=== PATIENT | female | born 1950 | race American Indian/Alaskan Native ===

== ENCOUNTER 2022-03-08 10:09 | Emergency (ER) | payer MEDICARE, MEDICAID ==
[2022-03-08] MEDS ORDERED: fentaNYL 100 MCG/2 ML INJ IV ONE (10:37)
[2022-03-08] MEDS ORDERED: ONDANSETRON 4 MG/2 ML INJ IV ONE (10:37)
--- NOTE | 2022-03-08 10:42 | Emergency Department Report ---
ED Fall HPI - General Chief Complaint: Fall Stated Complaint: FALL Time Seen by Provider: 03/08/22 10:37 Source: patient, EMS Mode of arrival: Stretcher - History of Present Illness Initial Comments: Patient is 71 years old female brought to the emergency room via EMS from home f or evaluation after a fall. Patient stated that she was laying on her couch and when she rolled over she fell on the ground, hardwood floor. Patient landed on her left side. Patient complaining of left-sided chest pain, left upper abdominal pain, left hip pain. Patient stated that she hit her head also. Patient also complaining of neck pain. MD Complaint: fall -: This morning Fall From: out of bed Fall Witnessed: yes, by family Place Fall Occurred: home Symptoms Prior to Fall: none - Related Data Allergies Allergy/AdvReac Type Severity Reaction Status Date / Time animal dander AdvReac Unknown Verified 03/08/22 10:13 aspirin AdvReac Unknown Verified 03/08/22 10:13 codeine AdvReac Unknown Verified 03/08/22 10:13 erythromycin base AdvReac Unknown Verified 03/08/22 10:13 grass pollen AdvReac Unknown Verified 03/08/22 10:13 ketorolac [From Toradol] AdvReac Unknown Verified 03/08/22 10:13 Latex, Natural Rubber AdvReac Unknown Verified 03/08/22 10:13 ED Review of Systems ROS: Stated complaint: FALL Other details as noted in HPI Comment: All other systems reviewed and negative Constitutional: denies: chills, fever Respiratory: denies: cough, orthopnea, shortness of breath, SOB with exertion, SOB at rest Gastrointestinal: denies: abdominal pain, nausea, vomiting, diarrhea Musculoskeletal: denies: back pain Neurological: denies: headache, weakness, numbness, paresthesias, confusion ED Past Medical Hx - Social History Smoking Status: Never Smoker Substance Use Type: None ED Physical Exam - General Limitations: No Limitations General appearance: alert, in no apparent distress - Head Head exam: Present: atraumatic, normocephalic, normal inspection - Eye Eye exam: Present: normal appearance - ENT ENT exam: Present: normal exam, normal orophraynx - Respiratory Respiratory exam: Present: chest wall tenderness - Cardiovascular Cardiovascular Exam: Present: regular rate, normal rhythm, normal heart sounds - GI/Abdominal GI/Abdominal exam: Present: soft, tenderness, normal bowel sounds. Absent: distended, guarding, rebound, rigid, mass, bruit, pulsatile mass, hernia - Extremities Exam Extremities exam: Present: normal inspection, full ROM, normal capillary refill. Absent: pedal edema, calf tenderness - Back Exam Back exam: Present: normal inspection, full ROM. Absent: CVA tenderness (R), CVA tenderness (L) - Neurological Exam Neurological exam: Present: alert, oriented X3, CN II-XII intact - Psychiatric Psychiatric exam: Present: normal mood, anxious - Skin Skin exam: Present: warm, intact, normal color ED Course Vital Signs 03/08/22 03/08/22 03/08/22 10:10 10:25 10:31 Pulse Rate 78 77 80 Respiratory 15 18 Rate Blood Pressure 106/72 Blood Pressure 113/68 [Right] O2 Sat by Pulse 97 95 95 Oximetry 03/08/22 03/08/22 03/08/22 10:45 11:01 11:15 Pulse Rate 78 80 77 Respiratory 15 23 13 Rate Blood Pressure 106/72 106/72 106/72 Blood Pressure [Right] O2 Sat by Pulse 93 95 96 Oximetry 03/08/22 03/08/22 03/08/22 11:31 11:45 12:01 Pulse Rate 77 84 86 Respiratory 13 14 10 L Rate Blood Pressure 106/72 106/72 106/72 Blood Pressure [Right] O2 Sat by Pulse 97 97 98 Oximetry 03/08/22 03/08/22 03/08/22 12:15 12:31 12:45 Pulse Rate 85 90 81 Respiratory 10 L 12 10 L Rate Blood Pressure 106/72 106/72 106/72 Blood Pressure [Right] O2 Sat by Pulse 98 100 99 Oximetry ED Medical Decision Making - Lab Data Result diagrams: 03/08/22 Unknown 03/08/22 13:00 - Radiology Data Radiology results: report reviewed - Medical Decision Making Patient is 71 years old female brought to the emergency room via EMS from home for evaluation after a fall. Patient stated that she was laying on her couch and when she rolled over she fell on the ground, hardwood floor. Patient landed on her left side. Patient complaining of left-sided chest pain, left upper abdominal pain, left hip pain. Patient stated that she hit her head also. Patient also complaining of neck pain. Labs reviewed and is unremarkable. CT head, CT cervical spine, CT chest and CT abdomen and pelvis is unremarkable for acute finding. Patient received [place] in the ER. Patient advised to follow-up with her primary care physician for further management. Patient also advised to return to the ER if she develop any new symptoms. Critical care attestation.: If time is entered above; I have spent that time in minutes in the direct care of this critically ill patient, excluding procedure time. ED Disposition Clinical Impression: Fall, Contusion Disposition: 01 HOME / SELF CARE / HOMELESS Is pt being admited?: No Condition: Stable Instructions: Fall Prevention in the Home, Adult, Contusion Referrals: PRIMARY CARE, [Referring] - 3-5 Days
[2022-03-08 11:07] LABS: Basophils % (Auto) 0.3 % (0.0-1.8); Eosinophils % (Auto) 0.7 % (0.0-4.3); Hematocrit 31.7 % (30.3-42.9); Lymphocytes # (Auto) 1.4 K/mm3 (1.2-5.4); Lymphocytes % (Auto) 22.9 % (13.4-35.0); Mean Corpuscular HGB Conc 32 % (30-34); Mean Corpuscular Volume 82 fl (79-97); Monocytes # (Auto) 0.4 K/mm3 (0.0-0.8); Monocytes % (Auto) 6.5 % (0.0-7.3); Platelet Count 265 K/mm3 (140-440); Red Blood Count 3.85 M/mm3 (3.65-5.03); Red Cell Distribution Width 18.1 % (13.2-15.2)
[2022-03-08 11:19] LABS: INR 0.82 (0.87-1.13)
[2022-03-08 11:20] LABS: Partial Thromboplastin Time 27.1 Sec. (24.2-36.6)
[2022-03-08 11:35] LABS: BUN/Creatinine Ratio TNR; Blood Urea Nitrogen TNR mg/dL (7-17); Calcium TNR mg/dL (8.4-10.2); Hemolysis Index TNR
[2022-03-08 13:47] LABS: Calcium 9.4 mg/dL (8.4-10.2)
--- NOTE | 2022-03-08 14:14 | Cat Scan Report ---
CT BRAIN: 03/08/2022 INDICATION / CLINICAL INFORMATION: Fall. COMPARISON: None available. FINDINGS: BRAIN/INTRACRANIAL STRUCTURES: Unenhanced CT images of the brain demonstrate no evidence of acute abn ormality. Ventricles and sulci are prominent in size, consistent with prominent age-related atrophic change. Chronic white matter hypoattenuation is present throughout the cerebral hemispheric white matter. There is no evidence of acute ischemic injury, hemorrhage, or mass. There are no abnormal extra-axial fluid collections. EXTRACRANIAL STRUCTURES: Unremarkable. IMPRESSION: No acute abnormality. All CT scans at this location are performed using dose reduction to ALARA by means of automated expos ure control. Signer Name: Dimitris Holm MD Signed: 03/08/2022 2:09 PM Workstation Name: [id number]
--- NOTE | 2022-03-08 14:18 | Cat Scan Report ---
CT CHEST, ABDOMEN, AND PELVIS WITHOUT CONTRAST INDICATION / CLINICAL INFORMATION: Fall. Chest and abdominal pain. TECHNIQUE: Axial CT images were obtained through the chest, abdomen, and pelvis without contrast. All CT scans at this location are performed using CT dose reduction for ALARA by means of automated expo sure control. COMPARISON: None available. FINDINGS: HEART: No significant abnormality. CORONARY ARTERY CALCIFICATION: Present -- Moderate. THORACIC AORTA: Mild atherosclerotic calcification without acute abnormality. MEDIASTINUM / FIFI: No significant abnormality. PLEURA: No pleural effusion. No pneumothorax. LUNGS: No acute air space or interstitial disease. Mild bibasilar atelectasis. ADDITIONAL CHEST FINDINGS: None. LIVER: No significant abnormality. GALLBLADDER: Cholecystectomy. BILE DUCTS: No significant abnormality. PANCREAS: No significant abnormality. SPLEEN: No significant abnormality. ADRENALS: No significant abnormality. RIGHT KIDNEY / URETER: Small simple cyst. No significant abnormality. LEFT KIDNEY / URETER: Small simple cysts. No significant abnormality. STOMACH and SMALL BOWEL: No significant abnormality. COLON: No significant abnormality. APPENDIX: Appendectomy. PERITONEUM: No free fluid. No free air. No fluid collection. LYMPH NODES: No significant adenopathy. AORTA / ARTERIES: No significant abnormality. IVC / VEINS: No significant abnormality. URINARY BLADDER: No significant abnormality. REPRODUCTIVE ORGANS: Uterus is absent. No significant adnexal abnormality. ADDITIONAL FINDINGS: None. SKELETAL SYSTEM: Postoperative and degenerative findings of the lumbar spine. No acute osseous abnorm ality. IMPRESSION: 1. No acute findings in the chest, abdomen, or pelvis. Signer Name: Alis Rodrigez MD Signed: 03/08/2022 2:13 PM Workstation Name: [id number]
--- NOTE | 2022-03-08 14:19 | Cat Scan Report ---
CT cervical spine wo con INDICATION / CLINICAL INFORMATION: 71 years Female; Fall. TECHNIQUE: Axial CT images of the cervical spine were obtained. Sagittal and coronal reformatted images were pr oduced. All CT scans at this location are performed using CT dose reduction for ALARA by means of aut omated exposure control. COMPARISON: None available. FINDINGS: POST-SURGICAL CHANGES: Posterior fusion hardware seen extending from the C2 level through the T1 leve l - bilateral posterior element screws are suggested at every level except C7 where there is a unilat eral screw on the left. Interbody fusion material seen at C3-4, C4-5, C5-6, and C6-7. Minimal loosening of the screws at the C2 level cannot entirely be excluded. Flexion-extension views may be of benefit to evaluate for any motion at the C2-3 level. No definitive signs of hardware failure appreciated. ALIGNMENT: There may be slight anterolisthesis of C7 with respect to T1. VERTEBRAE: No signs of fracture. Vertebral bodies are grossly normal in height throughout. Is difficult to evaluate canal patency because of hardware artifact. INTRAVERTEBRAL DISCS: Disc spaces are fairly well-maintained throughout without significant canal alba nosis. PARASPINAL SOFT TISSUES: No significant abnormality. ADDITIONAL FINDINGS: There is significant opacification of the right sphenoid sinus. IMPRESSION: 1. No definitive signs of acute bony trauma or hardware failure. Signer Name: Jefferson Grigsby MD, III Signed: 03/08/2022 2:14 PM Workstation Name: [id number]
[2022-03-08] MEDS ORDERED: HYDROcodone/ACETAMINOPHEN 5-325 MG TAB PO ONE (14:28)
[2022-03-08 16:14] VITALS: BP 132/81
== END 2022-03-08 16:16 | disposition home or self-care (01) ==
LOC: ED 10:09
DX: T14.8XXA Other injury of unspecified body region, initial encounter (principal); M25.552 Pain in left hip; R07.9 Chest pain, unspecified; R10.10 Upper abdominal pain, unspecified; R51.9 Headache, unspecified; Z88.1 Allergy status to other antibiotic agents; Z88.5 Allergy status to narcotic agent; Z88.6 Allergy status to analgesic agent; Z91.040 Latex allergy status; Z91.048 Other nonmedicinal substance allergy status; W17.89XA Other fall from one level to another, initial encounter; Y93.89 Activity, other specified; Y92.89 Other specified places as the place of occurrence of the external cause; Y99.8 Other external cause status
CPT/HCPCS: 36415; 70450; 71250; 72125; 74176; 80048; 85025; 85610; 85730; 99284; J2405; J3010

== ENCOUNTER 2022-05-24 12:36 | Emergency (ER) | payer MEDICARE, MEDICAID ==
--- NOTE | 2022-05-24 15:31 | Cat Scan Report ---
CT lumbar spine wo con INDICATION: PAIN SP FALL. TECHNIQUE: Axial CT images of the lumbar spine were obtained. Sagittal and coronal reformatted images were produ joshua. All CT scans at this location are performed using CT dose reduction for ALARA by means of automa caleb exposure control. COMPARISON: None available. FINDINGS: ALIGNMENT: Minimal anterolisthesis of L4-L5. VERTEBRAE: No fracture. Vertebral body heights are preserved. SPONDYLOSIS: Postoperative changes from L4 to S1 posterior spinal fusion and interbody fusion at L5-S 1. Hardware is intact. No abnormal lucency surrounds hardware. L5-S1 laminectomies with right facetec ravindra. Thecal sac and right neural foramen are decompressed. No significant osseous spinal canal or fo raminal stenosis. There is mature osseous fusion along the posterior construct L4-L5 but not at L5-S1 . No significant superior junctional L3-L4 spondylosis. SOFT TISSUES: No significant soft tissue abnormality. ADDITIONAL FINDINGS: No significant additional findings. IMPRESSION: 1. No acute fracture. Signer Name: Antoni Barone MD Signed: 05/24/2022 3:27 PM Workstation Name: [id number]
--- NOTE | 2022-05-24 16:31 | Emergency Department Report ---
ED Fall HPI - General Chief Complaint: Back Pain/Injury Stated Complaint: BACK PAIN X1 WEEK Time Seen by Provider: 05/24/22 16:30 Source: patient, EMS Mode of arrival: Wheelchair - History of Present Illness Initial Comments: 71 YO COMES TO ER SP FALL 7 DAYS AGO. SHE SLIPPED ON WET WATER AND SLID TO GROUND. PT AMBULATORY. NO FEVER/CHILLS. NO PARALYSIS. NO INCONTINENCE. NO SPINE TENDERNESS MECHANICAL FALL WITH NO LOC MD Complaint: fall -: Sudden, days(s) Fall From: standing Fall Witnessed: yes, by family Place Fall Occurred: home Loss of Consciousness: none Prolonged Down Time?: no Symptoms Prior to Fall: none Context: tripped/slipped Associated Symptoms: denies - Related Data Previous Rx's Medication Instructions Recorded Last Taken Type oxyCODONE /ACETAMINOPHEN [Percocet 1 tab PO Q6HR PRN #10 tablet 03/08/22 Unknown Rx 5/325] Allergies Allergy/AdvReac Type Severity Reaction Status Date / Time animal dander AdvReac Unknown Verified 05/24/22 12:45 aspirin AdvReac Unknown Verified 05/24/22 12:45 codeine AdvReac Unknown Verified 05/24/22 12:45 erythromycin base AdvReac Unknown Verified 05/24/22 12:45 grass pollen AdvReac Unknown Verified 05/24/22 12:45 ketorolac [From Toradol] AdvReac Unknown Verified 05/24/22 12:45 Latex, Natural Rubber AdvReac Unknown Verified 05/24/22 12:45 ED Review of Systems ROS: Stated complaint: BACK PAIN X1 WEEK Other details as noted in HPI Comment: All other systems reviewed and negative ED Past Medical Hx - Past Medical History Previous Medical History?: Yes Hx Hypertension: Yes Hx GERD: Yes Hx Headaches / Migraines: Yes Hx COPD: Yes Additional medical history: bronchitis- CHRONIC PAIN- IN PAIN MANAGEMENT - Surgical History Past Surgical History?: Yes - Family History Family history: no significant - Social History Smoking Status: Never Smoker Substance Use Type: None - Medications Home Medications: Home Medications Medication Instructions Recorded Confirmed Last Taken Type oxyCODONE /ACETAMINOPHEN [Percocet 1 tab PO Q6HR PRN #10 tablet 03/08/22 Unknown Rx 5/325] ED Physical Exam - General Limitations: No Limitations General appearance: alert - Head Head exam: Present: normocephalic - Eye Eye exam: Present: normal appearance, PERRL - ENT ENT exam: Present: mucous membranes moist - Neck Neck exam: Present: normal inspection - Respiratory Respiratory exam: Present: normal lung sounds bilaterally. Absent: respiratory distress - Cardiovascular Cardiovascular Exam: Present: regular rate, normal rhythm. Absent: systolic murmur, diastolic murmur, rubs, gallop - GI/Abdominal GI/Abdominal exam: Present: soft, normal bowel sounds - Extremities Exam Extremities exam: Present: normal inspection, full ROM - Back Exam Back exam: Present: normal inspection, paraspinal tenderness. Absent: full ROM, tenderness, CVA tenderness (R), CVA tenderness (L), muscle spasm, vertebral tenderness, rash noted - Neurological Exam Neurological exam: Present: alert, oriented X3 - Psychiatric Psychiatric exam: Present: anxious - Skin Skin exam: Present: warm, dry, intact, normal color. Absent: rash ED Course Vital Signs 05/24/22 12:43 Temperature 97.4 F L Pulse Rate 68 Respiratory 16 Rate Blood Pressure 122/73 [Left] O2 Sat by Pulse 97 Oximetry - Reevaluation(s) Reevaluation #1: 05/24/22 16:41 HOME RX NORVASC PERCOCET LYRICA XARALTO ED Medical Decision Making - Radiology Data Radiology results: report reviewed, image reviewed NAP - Medical Decision Making Vital Signs 05/24/22 12:43 Temperature 97.4 F L Pulse Rate 68 Respiratory 16 Rate Blood Pressure 122/73 [Left] O2 Sat by Pulse 97 Oximetry MEDICATED WITH IM TORADOL, NORCO AND FLEXERIL PT IS CHRONIC PAIN PT ON PERCOCET AT HOME. SEEMS TO BE A COMPONENT OF DRUG SEEKING BEHAVIOR PT BEING DC HOME WITH DC PLAN OF CARE- INCLUDING DIET, MEDS, ACTIVITY AND FOLLOW UP. SHE VERBALIZES UNDERSTANDING OF THE PLAN CARE. SHE IS TO BE DISCHARGED HOME WITH A RIDE. - Differential Diagnosis RO FX Critical care attestation.: If time is entered above; I have spent that time in minutes in the direct care of this critically ill patient, excluding procedure time. ED Disposition Clinical Impression: Fall Qualifiers: Encounter type: initial encounter Qualified Code(s): W19.XXXA - Unspecified f all, initial encounter Back pain Qualifiers: Back pain location: low back pain Chronic pain Qualifiers: Chronic pain type: chronic pain syndrome Qualified Code(s): G89.4 - Chronic pain syndrome Disposition: 01 HOME / SELF CARE / HOMELESS Is pt being admited?: No Does the pt Need Aspirin: No Condition: Stable Instructions: Chronic Back Pain Additional Instructions: CONTINUE HOME MEDS INCLUDING LYRICA AND PERCOCET Referrals: MIGUEL TIMMONS MD [Staff Physician] - 3-5 Days SYDNEY ROWLEY MD [Staff Physician] - 3-5 Days Time of Disposition: 16:35
[2022-05-24] MEDS ORDERED: HYDROcodone/ACETAMINOPHEN 5-325 MG TAB PO ONE (16:35)
[2022-05-24] MEDS ORDERED: KETOROLAC 60 MG/2 ML INJ IM ONE (16:35)
[2022-05-24] MEDS ORDERED: CYCLOBENZAPRINE 10 MG TAB PO ONE (16:35)
[2022-05-24] MEDS ORDERED: diphenhydrAMINE 25 MG CAP PO ONE (18:01)
[2022-05-24] MEDS ORDERED: dexAMETHasone 4 MG/ML VIAL IM ONE (18:06)
[2022-05-24 18:50] VITALS: BP 134/78
== END 2022-05-24 18:49 | disposition home or self-care (01) ==
LOC: ED 12:36
DX: M54.50 Low back pain, unspecified (principal); G89.29 Other chronic pain; I10 Essential (primary) hypertension; K21.9 Gastro-esophageal reflux disease without esophagitis; G43.909 Migraine, unspecified, not intractable, without status migrainosus; J44.9 Chronic obstructive pulmonary disease, unspecified; Z88.5 Allergy status to narcotic agent; Z91.09 Other allergy status, other than to drugs and biological substances; Z88.6 Allergy status to analgesic agent; Z88.1 Allergy status to other antibiotic agents; Z79.899 Other long term (current) drug therapy; W18.39XA Other fall on same level, initial encounter; Y93.89 Activity, other specified; Y92.89 Other specified places as the place of occurrence of the external cause; Y99.8 Other external cause status
CPT/HCPCS: 72131; 96372; 99284; J1100; J1885

== ENCOUNTER 2022-06-28 14:11 | Emergency (ER) | payer MEDICARE, MEDICAID ==
[2022-06-28] MEDS ORDERED: METOCLOPRAMIDE 10 MG/2 ML INJ IM ONE (15:24)
[2022-06-28] MEDS ORDERED: BUTALB/ACETAMINOPHEN/CAFFEINE TAB PO ONE (15:24)
[2022-06-28] MEDS ORDERED: fentaNYL 100 MCG/2 ML INJ IM ONE (15:24)
--- NOTE | 2022-06-28 15:28 | Emergency Department Report ---
HPI - General Chief Complaint: Headache Time Seen by Provider: 06/28/22 15:16 - HPI HPI: Room 5 The patient is a 71-year-old female present with chief complaint of migraine headache. Patient states she has a history of migraines and is followed by a n eurologist Dr. Dickson at [place]. Patient states for the past 3 days she has had a constant bitemporal and occipital headache that feels like her migraines. Patient admits to nausea vomiting. Patient denies any preceding trauma. Patient denies history of fever. Patient currently gives her pain a score of 10/10 ED Past Medical Hx - Past Medical History Hx Hypertension: Yes Hx CVA: Yes Hx GERD: Yes Hx Headaches / Migraines: Yes Hx COPD: Yes Additional medical history: bronchitis- CHRONIC PAIN- IN PAIN MANAGEMENT - Surgical History Hx Cholecystectomy: Yes Additional Surgical History: Back surgery x2, neck surgery, right shoulder surgery, hysterectomy - Family History Family history: no significant - Social History Smoking Status: Current Every Day Smoker (1/2 pack/day) Substance Use Type: None (Denies illicit drug use) - Medications Home Medications: Home Medications Medication Instructions Recorded Confirmed Last Taken Type oxyCODONE /ACETAMINOPHEN [Percocet 1 tab PO Q6HR PRN #10 tablet 03/08/22 Unknown Rx 5/325] Butalb/Acetamin/Caff 50-325-40 2 tab PO Q8HR PRN #20 tablet 06/28/22 Unknown Rx [Fioricet 50-325-40] ED Review of Systems ROS: Stated complaint: MIGRAINE Other details as noted in HPI Constitutional: denies: fever Eyes: denies: eye pain ENT: denies: throat pain Respiratory: no symptoms reported Cardiovascular: denies: chest pain Endocrine: no symptoms reported Gastrointestinal: nausea, vomiting Genitourinary: denies: dysuria Musculoskeletal: denies: back pain Neurological: headache Physical Exam - Physical Exam Vital Signs: Vital Signs 06/28/22 14:24 Temperature 97.5 F L Pulse Rate 80 Respiratory 18 Rate Blood Pressure 137/85 [Left] O2 Sat by Pulse 97 Oximetry Physical Exam: GENERAL: The patient is well-developed well-nourished female lying on stretcher not appearing to be in acute distress. [] HEENT: Normocephalic. Atraumatic. Extraocular motions are intact. Patient has moist mucous membranes. NECK: Supple. No meningitic signs are noted. Trachea midline CHEST/LUNGS: Clear to auscultation. There is no respiratory distress noted. HEART/CARDIOVASCULAR: Regular. There is no tachycardia. There is no gallop rub or murmur. ABDOMEN: Abdomen is soft, nontender. Patient has normal bowel sounds. There is no abdominal distention. SKIN: There is no rash. There is no edema. There is no diaphoresis. NEURO: The patient is awake, alert, and oriented. The patient is cooperative. The patient has no focal neurologic deficits. The patient has normal speech. Cranial nerves II through XII grossly intact. Moves all extremities well. GCS 15 MUSCULOSKELETAL: There is no evidence of acute injury. ED Course Vital Signs 06/28/22 14:24 Temperature 97.5 F L Pulse Rate 80 Respiratory 18 Rate Blood Pressure 137/85 [Left] O2 Sat by Pulse 97 Oximetry - Reevaluation(s) Reevaluation #1: 06/28/22 19:14 Patient states her headache has improved to a 05/01 ED Medical Decision Making - Radiology Data Radiology results: report reviewed (CT head), image reviewed (CT head) [facility] [address] [place] [address] Cat Scan Report Signed Patient: DAMEON GEORGES MR#: [id number] : 1950 Acct:[id number] Age/Sex: 71 / F ADM Date: 06/28/22 Loc: ED Attending Dr: Ordering Physician: RUBENS WONG MD Date of Service: 06/28/22 Procedure(s): CT head/brain wo con Accession Number(s): [id number] cc: RUBENS WONG MD CT HEAD WITHOUT CONTRAST INDICATION / CLINICAL INFORMATION: Headache nausea vomiting. TECHNIQUE: All CT scans at this location are performed using CT dose reduction for ALARA by means of automated exposure control. COMPARISON: Head CT 03/08/2022 FINDINGS: HEMORRHAGE: No evidence of intracranial hemorrhage or extra-axial fluid collection. EXTRA-AXIAL SPACES: Cortical sulci and sylvian fissures are normal limits for the patient's age of 71 years. Basilar cisterns have an unremarkable appearance. VENTRICULAR SYSTEM: The third and lateral ventricles are normal in size given the patient's age. CEREBRAL PARENCHYMA: Subtle periventricular, subcortical and deep white matter lucency is observed. This is probably secondary to microvascular ischemic change. There is no indication of recent infarction. No areas of encephalomalacia are identified. MIDLINE SHIFT OR HERNIATION: There is no mass effect. CEREBELLUM / BRAINSTEM: Brainstem has an unremarkable appearance. Age related cerebellar atrophy is noted. MIDLINE STRUCTURES:Pituitary gland has an unremarkable appearance. No abnormalities are seen in the pineal region. INTRACRANIAL VESSELS:Calcified atherosclerotic plaque is present along the course of the cavernous segments of both internal carotid arteries. CRANIOCERVICAL JUNCTION:No signifi cant abnormality. ORBITS: Status post bilateral cataract surgery. Bilateral exophthalmos is noted. Correlation with thyroid function testing is suggested. No additional orbital abnormalities are i dentified. SOFT TISSUES of HEAD: No significant abnormality. CALVARIUM: Evaluation of bone windows reveals no abnormalities. PARANASAL SINUSES / MASTOID AIR CELLS: Mild mucosal thickening is present in the right sphenoid sinus. There is bony thickening of the wall of the right sphenoid sinus consistent with chronic inflammatory change. ADDITIONAL FINDINGS: None. IMPRESSION: 1. Age-related microvascular ischemic change. 2. No acute intracranial abnormality. 3. Head CT without contrast is within normal limits for the patient's age of 71 years and unchanged in comparison to prior study 03/08/2022. Signer Name: Manuel Freeman MD Signed: 06/28/2022 4:01 PM Workstation Name: [id number] Transcribed By: Dictated By: Manuel Freeman MD Electronically Authenticated By: Manuel Freeman MD Signed Date/Time: 06/28/22 1601 DD/ 1557 TD/TT: - Differential Diagnosis Migraine headache, intracranial mass, intracranial hemorrhage Critical care attestation.: If time is entered above; I have spent that time in minutes in the direct care of this critically ill patient, excluding procedure time. ED Disposition Clinical Impression: Headache Disposition: HOME / SELF CARE / HOMELESS Is pt being admited?: No Does the pt Need Aspirin: No Condition: Stable Additional Instructions: Return to the emergency department should you develop worsening symptoms, inability to tolerate food or liquids, high fever or any other concerns Prescriptions: Butalb/Acetamin/Caff 50-325-40 [Fioricet 50-325-40] 2 tab PO Q8HR PRN #20 tablet PRN Reason: Headache Referrals: Dr. Hernandez, your neurologist [Other] - 3-5 Days Time of Disposition: 19:15
--- NOTE | 2022-06-28 16:06 | Cat Scan Report ---
CT HEAD WITHOUT CONTRAST INDICATION / CLINICAL INFORMATION: Headache nausea vomiting. TECHNIQUE: All CT scans at this location are performed using CT dose reduction for ALARA by means of automated e xposure control. COMPARISON: Head CT 03/08/2022 FINDINGS: HEMORRHAGE: No evidence of intracranial hemorrhage or extra-axial fluid collection. EXTRA-AXIAL SPACES: Cortical sulci and sylvian fissures are normal limits for the patient's age of 71 years. Basilar cisterns have an unremarkable appearance. VENTRICULAR SYSTEM: The third and lateral ventricles are normal in size given the patient's age. CEREBRAL PARENCHYMA: Subtle periventricular, subcortical and deep white matter lucency is observed. T his is probably secondary to microvascular ischemic change. There is no indication of recent infarcti on. No areas of encephalomalacia are identified. MIDLINE SHIFT OR HERNIATION: There is no mass effect. CEREBELLUM / BRAINSTEM: Brainstem has an unremarkable appearance. Age related cerebellar atrophy is n oted. MIDLINE STRUCTURES:Pituitary gland has an unremarkable appearance. No abnormalities are seen in the p ineal region. INTRACRANIAL VESSELS:Calcified atherosclerotic plaque is present along the course of the cavernous se gments of both internal carotid arteries. CRANIOCERVICAL JUNCTION:No significant abnormality. ORBITS: Status post bilateral cataract surgery. Bilateral exophthalmos is noted. Correlation with thy roid function testing is suggested. No additional orbital abnormalities are identified. SOFT TISSUES of HEAD: No significant abnormality. CALVARIUM: Evaluation of bone windows reveals no abnormalities. PARANASAL SINUSES / MASTOID AIR CELLS: Mild mucosal thickening is present in the right sphenoid sinus . There is bony thickening of the wall of the right sphenoid sinus consistent with chronic inflammato ry change. ADDITIONAL FINDINGS: None. IMPRESSION: 1. Age-related microvascular ischemic change. 2. No acute intracranial abnormality. 3. Head CT without contrast is within normal limits for the patient's age of 71 years and unchanged i n comparison to prior study 03/08/2022. Signer Name: Manuel Freeman MD Signed: 06/28/2022 4:01 PM Workstation Name: [id number]
[2022-06-28] MEDS ORDERED: fentaNYL 100 MCG/2 ML INJ IV ONE (19:14)
[2022-06-28] MEDS ORDERED: diphenhydrAMINE 50 MG/ML VIAL IV ONE (19:14)
[2022-06-28 20:02] VITALS: BP 140/68
== END 2022-06-28 20:02 | disposition home or self-care (01) ==
LOC: ED 14:11
DX: G43.909 Migraine, unspecified, not intractable, without status migrainosus (principal); I10 Essential (primary) hypertension; K21.9 Gastro-esophageal reflux disease without esophagitis; J44.9 Chronic obstructive pulmonary disease, unspecified; G89.29 Other chronic pain; F17.210 Nicotine dependence, cigarettes, uncomplicated; Z90.49 Acquired absence of other specified parts of digestive tract; Z79.899 Other long term (current) drug therapy
CPT/HCPCS: 70450; 96372; 96374; 96375; 99284; J1200; J2765; J3010

== ENCOUNTER 2022-06-29 18:53 | Emergency (ER) | payer MEDICARE ==
--- NOTE | 2022-06-29 22:26 | Emergency Department Report ---
ED Headache HPI - General Chief Complaint: Headache Stated Complaint: HEADACHE Time Seen by Provider: 06/29/22 21:54 - History of Present Illness Initial Comments: 71 yo F with history of HTn and CVA and migraine BURGOS currently been seen by neurology and taken scheduled Botox but missed last appointment last Monday because she did not have transportation. She reports pressure headache on the right side of her head. No fever or chills reported. She says she has tried all that she can at home with no appreciable relief. No other modify or associated factors reported. Allergies/Adverse Reactions: Allergies acetaminophen [From Vicodin] Allergy (Verified 06/28/22 16:52) Unknown hydrocodone [From Vicodin] Allergy (Verified 06/28/22 16:52) Unknown pentazocine [From Talwin] Allergy (Verified 06/28/22 16:52) Unknown streptomycin Allergy (Verified 06/28/22 16:52) Unknown tramadol Allergy (Verified 06/28/22 16:52) Unknown animal dander Adverse Reaction (Verified 05/24/22 12:45) Unknown aspirin Adverse Reaction (Verified 05/24/22 12:45) Unknown codeine Adverse Reaction (Verified 05/24/22 12:45) Unknown erythromycin base Adverse Reaction (Verified 05/24/22 12:45) Unknown grass pollen Adverse Reaction (Verified 05/24/22 12:45) Unknown ketorolac [From Toradol] Adverse Reaction (Verified 05/24/22 12:45) Unknown Latex, Natural Rubber Adverse Reaction (Verified 05/24/22 12:45) Unknown lorazepam [From Ativan] Adverse Reaction (Verified 06/28/22 16:52) Unknown metoclopramide [From Reglan] Adverse Reaction (Verified 06/28/22 16:52) Unknown prochlorperazine [From Compazine] Adverse Reaction (Verified 06/28/22 16:52) Unknown Home Medications: Ambulatory Orders oxyCODONE /ACETAMINOPHEN [Percocet 5/325] 1 tab PO Q6HR PRN #10 tablet 03/08/22 Butalb/Acetamin/Caff 50-325-40 [Fioricet 50-325-40] 2 tab PO Q8HR PRN #20 tablet 06/28/22 ED Review of Systems ROS: Stated complaint: HEADACHE Other details as noted in HPI Comment: All other systems reviewed and negative Neurological: headache ED Past Medical Hx - Past Medical History Hx Hypertension: Yes Hx CVA: Yes Hx GERD: Yes Hx Headaches / Migraines: Yes Hx COPD: Yes Additional medical history: bronchitis- CHRONIC PAIN- IN PAIN MANAGEMENT - Surgical History Hx Cholecystectomy: Yes Additional Surgical History: Back surgery x2, neck surgery, right shoulder surgery, hysterectomy - Social History Smoking Status: Current Every Day Smoker (1/2 pack/day) Substance Use Type: None (Denies illicit drug use) - Medications Home Medications: Home Medications Medication Instructions Recorded Confirmed Last Taken Type oxyCODONE /ACETAMINOPHEN [Percocet 1 tab PO Q6HR PRN #10 tablet 03/08/22 Unknown Rx 5/325] Butalb/Acetamin/Caff 50-325-40 2 tab PO Q8HR PRN #20 tablet 06/28/22 Unknown Rx [Fioricet 50-325-40] ED Physical Exam - General Limitations: No Limitations General appearance: alert, in no apparent distress - Head Head exam: Present: atraumatic, normocephalic, normal inspection - Eye Eye exam: Present: normal appearance Pupils: Present: normal accommodation - ENT ENT exam: Present: normal exam, normal orophraynx, mucous membranes moist - Neck Neck exam: Present: normal inspection, full ROM. Absent: tenderness - Respiratory Respiratory exam: Present: normal lung sounds bilaterally. Absent: respiratory distress, accessory muscle use - Cardiovascular Cardiovascular Exam: Present: regular rate, normal rhythm, normal heart sounds - GI/Abdominal GI/Abdominal exam: Present: soft, normal bowel sounds. Absent: distended, tenderness - Extremities Exam Extremities exam: Present: normal inspection, normal capillary refill. Absent: pedal edema - Back Exam Back exam: Absent: tenderness - Neurological Exam Neurological exam: Present: alert, oriented X3 - Psychiatric Psychiatric exam: Present: normal affect, normal mood - Skin Skin exam: Present: warm, normal color ED Course Vital Signs 06/29/22 20:51 Temperature 98.2 F Pulse Rate 78 Respiratory 16 Rate Blood Pressure 142/92 [Right] O2 Sat by Pulse 98 Oximetry - Reevaluation(s) Reevaluation #1: 06/30/22 02:16 ICU called to help put in peripheral iv 18 gauge but patient decided to pull it out and says she is ready to go home-- pt reassure to return it symptoms worsen ED Medical Decision Making - Medical Decision Making here with migraine BURGOS an episode after missing her botox last Monday-- will go ahead and treat and monitor progress Critical care attestation.: If time is entered above; I have spent that time in minutes in the direct care of this critically ill patient, excluding procedure time. ED Disposition Clinical Impression: Migraine headache Qualifiers: Migraine type: unspecified Status migrainosus presence: without status migrainosus Intractability: not intractable Qualified Code(s): G43.909 - Migraine, unspecified, not intractable, without status migrainosus Disposition: HOME / SELF CARE / HOMELESS Is pt being admited?: No Does the pt Need Aspirin: No Condition: Stable Instructions: Migraine Headache, [id number] Additional Instructions: Continue your migraine headache as prescribed by your neurology Please call and follow-up with your neurology in the next 2 to 3 days for progress/reevaluation and treatment Please do not hesitate to call or return to emergency if your symptoms worsen Referrals: PRIMARY CAREMD [Primary Care Provider] - 3-5 Days Time of Disposition: 02:17
[2022-06-29] MEDS ORDERED: SUMAtriptan SUCCINATE 6 MG/0.5 ML INJ SUB-Q ONE (22:28)
[2022-06-29] MEDS ORDERED: SODIUM CHLORIDE 0.9% 1000 ML 1,000 ML IV ONE (22:30)
[2022-06-30] MEDS ORDERED: SODIUM CHLORIDE 0.9% 1000 ML 1,000 ML ONE (01:56)
[2022-06-30 02:41] VITALS: BP 137/66
== END 2022-06-30 02:42 | disposition home or self-care (01) ==
LOC: ED 18:53
DX: G43.909 Migraine, unspecified, not intractable, without status migrainosus (principal); I10 Essential (primary) hypertension; F17.200 Nicotine dependence, unspecified, uncomplicated; Z90.49 Acquired absence of other specified parts of digestive tract
CPT/HCPCS: 96372; 99283; J7030; J3490; J3030

== ENCOUNTER 2022-07-04 16:53 | Emergency (ER) | payer MEDICARE ==
[2022-07-05] MEDS ORDERED: diphenhydrAMINE 25 MG CAP PO ONE (00:05)
[2022-07-05] MEDS ORDERED: BUPIVACAINE/PF (0.5%) 5 MG/1 ML 30 ML VIAL INFILTRATI ONE (00:05)
[2022-07-05] MEDS ORDERED: HALOPERIDOL LACTATE 5 MG/1 ML INJ IM ONE (00:06)
--- NOTE | 2022-07-05 00:13 | Emergency Department Report ---
ED General Adult HPI - General Chief complaint: Headache Stated complaint: MIGRAINE X 5 DAYS PUI?: No Time Seen by Provider: 07/04/22 23:23 Source: patient, RN notes reviewed, old records reviewed Mode of arrival: Stretcher Limitations: No Limitations - History of Present Illness Initial comments: The patient was evaluated in the emergency department for symptoms described in the history of present illness. He/she was evaluated in the context of the global COVID-19 pandemic, which necessitated consideration that the patient might be at risk for infection with the virus that causes COVID-19. Institutional protocols and algorithms that pertain to the evaluation of patients at risk for COVID-19 are in a state of rapid change based on information released by regulatory bodies including the CDC and federal and state organizations. These policies and algorithms were followed during the patient's care in the emergency department. Please note that these policies, procedures and recommendations changed on a rapid basis. The patient is a 71-year-old female with reported history of migraine, chronic pain syndrome, who reports that she recently relocated from [place]. She presents to the department today with a complaint of the typical migraine headache that she has been having since the age of 4. The migraine headache is frontal, bitemporal, and occipital. The headache has been intermittent for the past few days. She had a CT scan of her brain a few days ago at this hospital which was negative for acute findings. No fever. No neck pain or neck stiffness. To me, endorses mild nausea but no vomiting. Endorses mild photophobia. Endorses mild abdominal cramping, with possible diarrhea. No complaint of extremity weakness, numbness or ataxia Reports this is very similar to prior episodes of headaches, and reports that symptoms typically improved with Botox. She reports that she is scheduled to f ollow-up with her outpatient provider this month, on the , for Botox intervention. Makes no complaint of loss of vision, or jaw claudication. The headache is not described as sudden, thunderclap in nature, maximal intensity, or the worst headache of her life. -: days(s) Location: head Consistency: constant Improves with: other (Botox) Worsens with: other (Light. Palpation) - Related Data Previous Rx's Medication Instructions Recorded Last Taken Type oxyCODONE /ACETAMINOPHEN [Percocet 1 tab PO Q6HR PRN #10 tablet 03/08/22 Unknown Rx 5/325] Butalb/Acetamin/Caff 50-325-40 2 tab PO Q8HR PRN #20 tablet 06/28/22 Unknown Rx [Fioricet 50-325-40] Allergies Allergy/AdvReac Type Severity Reaction Status Date / Time acetaminophen [From Vicodin] Allergy Unknown Verified 06/28/22 16:52 hydrocodone [From Vicodin] Allergy Unknown Verified 06/28/22 16:52 pentazocine [From Talwin] Allergy Unknown Verified 06/28/22 16:52 streptomycin Allergy Unknown Verified 06/28/22 16:52 tramadol Allergy Unknown Verified 06/28/22 16:52 animal dander AdvReac Unknown Verified 05/24/22 12:45 aspirin AdvReac Unknown Verified 05/24/22 12:45 codeine AdvReac Unknown Verified 05/24/22 12:45 erythromycin base AdvReac Unknown Verified 05/24/22 12:45 grass pollen AdvReac Unknown Verified 05/24/22 12:45 ketorolac [From Toradol] AdvReac Unknown Verified 05/24/22 12:45 Latex, Natural Rubber AdvReac Unknown Verified 05/24/22 12:45 lorazepam [From Ativan] AdvReac Unknown Verified 06/28/22 16:52 metoclopramide [From Reglan] AdvReac Unknown Verified 06/28/22 16:52 prochlorperazine AdvReac Unknown Verified 06/28/22 16:52 [From Compazine] ED Review of Systems ROS: Stated complaint: MIGRAINE X 5 DAYS Other details as noted in HPI Constitutional: denies: fever Eyes: denies: eye pain, vision change Respiratory: denies: cough Cardiovascular: denies: chest pain Gastrointestinal: nausea Neurological: headache ED Past Medical Hx - Past Medical History Hx Hypertension: Yes Hx CVA: Yes Hx GERD: Yes Hx Headaches / Migraines: Yes Hx COPD: Yes Additional medical history: bronchitis- CHRONIC PAIN- IN PAIN MANAGEMENT - Surgical History Hx Cholecystectomy: Yes Additional Surgical History: Back surgery x2, neck surgery, right shoulder surgery, hysterectomy - Social History Smoking Status: Current Every Day Smoker (1/2 pack/day) Substance Use Type: None (Denies illicit drug use) - Medications Home Medications: Home Medications Medication Instructions Recorded Confirmed Last Taken Type oxyCODONE /ACETAMINOPHEN [Percocet 1 tab PO Q6HR PRN #10 tablet 03/08/22 Unknown Rx 5/325] Butalb/Acetamin/Caff 50-325-40 2 tab PO Q8HR PRN #20 tablet 06/28/22 Unknown Rx [Fioricet 50-325-40] ED Physical Exam - General Limitations: No Limitations General appearance: alert, in no apparent distress - Head Head exam: Present: atraumatic, normocephalic - Eye Eye exam: Present: normal appearance (There is no direct or consensual photophobia. There is no temporal tenderness), PERRL, EOMI. Absent: nystagmus - ENT ENT exam: Present: normal exam, normal orophraynx, mucous membranes moist, normal external ear exam - Neck Neck exam: Present: normal inspection, full ROM. Absent: tenderness, meningismus - Respiratory Respiratory exam: Present: normal lung sounds bilaterally. Absent: respiratory distress, wheezes, rales, rhonchi, stridor, decreased breath sounds - Cardiovascular Cardiovascular Exam: Present: regular rate, normal rhythm, normal heart sounds. Absent: bradycardia, tachycardia, irregular rhythm, systolic murmur, diastolic murmur, rubs, gallop - GI/Abdominal GI/Abdominal exam: Present: soft. Absent: distended, tenderness, guarding, rebound, rigid, pulsatile mass - Extremities Exam Extremities exam: Present: normal inspection, full ROM, other (2+ pulses noted in the bilateral upper and lower extremities. There is no palpable cord. negative Homans sign. Muscular compartments are soft. The pelvis is stable.). Absent: pedal edema, calf tenderness - Back Exam Back exam: Present: normal inspection. Absent: tenderness, CVA tenderness (R), CVA tenderness (L), paraspinal tenderness, vertebral tenderness - Neurological Exam Neurological exam: Present: alert, oriented X3, normal gait, other (There is no facial droop. The tongue is midline. EOMI. 5 of 5 strength in 4 extremities. Sensation is intact to light touch in 4 extremities.). Absent: motor sensory deficit - Psychiatric Psychiatric exam: Present: anxious - Skin Skin exam: Present: warm, dry, intact, normal color. Absent: rash ED Course Vital Signs 07/05/22 07/05/22 07/05/22 01:01 01:27 01:28 Temperature 97.9 F Pulse Rate 67 Respiratory 16 Rate Blood Pressure 143/78 [Left] O2 Sat by Pulse 99 Oximetry O2 Sat by Pulse 100 Oximetry [ Digit-Finger] 07/05/22 01:59 Temperature Pulse Rate 71 Respiratory 16 Rate Blood Pressure 121/59 [Left] O2 Sat by Pulse 98 Oximetry O2 Sat by Pulse Oximetry [ Digit-Finger] - Reevaluation(s) Reevaluation #1: 07/05/22 00:33 ga lead custodian aware 07/02/2022 06/28/2022 4 Ogimkf-Nowtmohg-Nvis 50-325-40 20.00 6 Ju Ali [id number] [facility] ([id number]) 0 1.67 [place]ME [place] 06/13/2022 06/13/2022 2 Oxycodone-Acetaminophen 10-325 90.00 30 Ik Okp [id number] [facility] ([id number]) 0 45.00 [place] 06/06/2022 05/17/2022 2 Belbuca 150 Mcg Film 60.00 30 Al Sca [id number] [facility] ([id number]) 0 0.30 mg [place] 06/04/2022 05/30/2022 2 Lyrica 200 Mg Capsule 90.00 30 Be Ban [id number] [facility] ([id number]) 0 4.02 [place]ME [place] 05/17/2022 05/17/2022 2 Lyrica 200 Mg Capsule 60.00 30 Al Sca [id number] [facility] ([id number]) 0 2.68 [place] 05/17/2022 05/17/2022 2 Oxycodone-Acetaminophen 10-325 90.00 30 Ik Okp [id number] [facility] ([id number]) 0 45.00 [place] 04/17/2022 04/01/2022 2 Lyrica 200 Mg Capsule 10.00 5 Ja Gou [id number] [facility] ([id number]) 0 2.68 [place] 04/17/2022 04/01/2022 2 Oxycodone-Acetaminophen 10-325 90.00 30 Ik Okp [id number] [facility] ([id number]) 0 45.00 [place] 04/01/2022 04/01/2022 2 Belbuca 150 Mcg Film 60.00 30 Ja Gou [id number] [facility] ([id number]) 0 0.30 mg [place] 03/22/2022 02/28/2022 2 Lyrica 200 Mg Capsule 50.00 30 Ch Hor [id number] [facility] ([id number]) 0 2.23 LME [place] 03/18/2022 02/28/2022 2 Lyrica 200 Mg Capsule 10.00 5 Ch Hor [id number] [facility] ([id number]) 0 2.68 [place] 03/18/2022 02/28/2022 2 Oxycodone-Acetaminophen 10-325 90.00 30 Ik Okp [id number] [facility] ([id number]) 0 45.00 [place] 03/10/2022 02/28/2022 2 Belbuca 75 Mcg Film 60.00 30 Ch Hor [id number] [facility] ([id number]) 0 0.01 mg [place] 02/18/2022 02/17/2022 1 Oxycodone-Acetaminophen 10-325 90.00 30 Ik Okp [id number] [facility] ([id number]) 0 45.00 MME [place] 02/18/2022 01/31/2022 1 Lyrica 200 Mg Capsule 60.00 30 Ik Okp [id number] [facility] ([id number]) 0 2.68 LME [place] Reevaluation #2: 07/05/22 00:36 Differential diagnosis, include but not limited to: Migraine headache, tension headache, cluster headache Assessment and plan: 71-year-old female, who reports chronic migraine headache for the past few decades, presenting with what is reportedly her typical migraine headache. She is ambulatory with a steady gait, with a GCS of 15, and no focal neurologic findings. She does not describe any red flag signs or symptoms at this time. Her pupils are reactive to light bilaterally. There is no temporal tenderness. There is no articulation of jaw claudication. There are no meningeal signs. Patient is unfortunate allergic/intolerant to multiple medications. We will therefore attempts haloperidol IM x1, intranasal bupivacaine, as well as occipital block with bupivacaine. I discussed this with the patient, and she is agreeable to this plan of care. Currently awaiting supplies to initiate therapy 07/05/22 01:27 The patient is feeling improved. She is sleeping comfortably in her stretcher. Sphenopalatine ganglion block performed. Trapezius injection was performed. The patient tolerated this procedure well. Her vital signs are unremarkable. She may follow-up with her outpatient primary care doctor or pain specialist 07/05/22 02:01 Patient resting comfortably on side, and appears quite comfortable. She self discontinued the nasal swabs. She does not appear to have an emergent medical condition present at this time. She may be discharged to follow-up with her outpatient specialist. - Procedure Description Procedures done: Patient provided verbal consent for sphenopalatine ganglion block, as well as occipital block. 2 Q-tips are soaked in 8 cc of 0.5% bupivacaine. Both Q-tips are gently inserted into the nostril. The patient tolerated this procedure well. Bilateral trapezius are cleansed with alcoholic swabs. Then, using a 21-gauge needle, each trapezius muscle belly is gently infiltrated with a 21-gauge needle, and 3.5 cc of 0.5% ropivacaine. The patient tolerated the procedure well. There are no obvious complications - Pulse Oximetry Interpretation Digit-Finger Initial Pulse Oximetry Readin O2 Sat by Pulse Oximetry: 100 Actions Taken: none ED Medical Decision Making - Radiology Data Radiology results: report reviewed, image reviewed Prior head CT reviewed and appreciated Critical care attestation.: If time is entered above; I have spent that time in minutes in the direct care of this critically ill patient, excluding procedure time. ED Disposition Clinical Impression: Headache Disposition: 01 HOME / SELF CARE / HOMELESS Is pt being admited?: No Does the pt Need Aspirin: No Condition: Good Instructions: Migraine Headache Additional Instructions: Please continue current outpatient medications. Please follow-up with your outpatient primary care doctor, neurologist, or pain specialist as scheduled. Follow-up within the next week. Please return to the emergency room right away with new pain, worsened pain, migration of pain, projectile vomiting, change in mental status, confusion, inability tolerate liquid feeds, new, worsened or different symptoms not present on the initial emergency room evaluation Referrals: DIANA ATKINS MD [Staff Physician] - 3-5 Days [facility] [Provider Group] - 3-5 Days
[2022-07-05 02:00] VITALS: BP 121/59
== END 2022-07-05 02:57 | disposition home or self-care (01) ==
LOC: ED 16:53
DX: R51.9 Headache, unspecified (principal); I10 Essential (primary) hypertension; K21.9 Gastro-esophageal reflux disease without esophagitis; J44.1 Chronic obstructive pulmonary disease with (acute) exacerbation; Z86.73 Personal history of transient ischemic attack (TIA), and cerebral infarction without residual deficits; Z90.49 Acquired absence of other specified parts of digestive tract; F17.200 Nicotine dependence, unspecified, uncomplicated; Z88.6 Allergy status to analgesic agent; Z88.1 Allergy status to other antibiotic agents; Z91.040 Latex allergy status; Z91.09 Other allergy status, other than to drugs and biological substances; Z79.899 Other long term (current) drug therapy
CPT/HCPCS: 99283; J1630; J3490